=== PATIENT | female | born 2000 ===

== ENCOUNTER 2021-06-05 08:45 | Inpatient (IN) | payer OTHER ==
[~2021-06-05] VITALS: Ht 175.3 cm; Wt 95.3 kg
[2021-06-05] MEDS ORDERED: PEPCID AC20 MG PO (10:06)
[2021-06-05] MEDS ORDERED: NULEV0.125 MG PO (10:07)
[2021-06-05] MEDS ORDERED: [UNRECOGNIZED DRUG - OTHER] (10:07)
== END 2021-06-06 18:15 | disposition home or self-care (01) | DRG 419 ==
LOC: ADM 08:45 → O/R 06-06 05:45 → SURH 06-06 08:30 → EDSTATUS 06-06 08:45 → CIR.AMB 06-06 08:45 → SURH 06-06 08:45 → O/R 06-06 18:15
PROVIDERS: ADMIT Specialist; ATTEND Specialist
PROC: 0FT44ZZ Resection of Gallbladder, Percutaneous Endoscopic Approach (ICD-10-PCS; principal; 2021-06-06 08:30)
DX: K80.10 Calculus of gallbladder with chronic cholecystitis without obstruction (principal); Z20.822 Contact with and (suspected) exposure to COVID-19